=== PATIENT | male | born 1995 | race Caucasian/White ===

== ENCOUNTER 2020-08-19 22:14 | Emergency (ER) | payer SELFPAY ==
--- NOTE | 2020-08-19 22:53 | ERPHSYRPT ---
- History of Present Illness Source: patient Patient Subjective Stated Complaint: Patient states " I am from [place] and I came down to celebrate with my friend and his suprise green party and I went to step off the concrete down to garage and when I did I rolled my right ankle and I heard it pop and within minutes it swelled up pretty large and the pain is terrible". Triage Nursing Assessment: Patient arrived to ED and RN assisted patient to room R/T in wheelchair R/T unable to bear weight on right foot. Patient A/O times 4. Patient able to follow directions without difficulty. Patient right ankle noted to be very swollen. No active bruising at this time. + pedal pulse noted to right lower extremity. Cap refill < 3 seconds in right foot. Patient able to wiggle toes but states it causes him serious pain. Patient is able to move right foot back and forth and sie to side but does cause pain and discomfort. Patient is unable to bear weight on right lower extremity. Patient admits to drinking at green party and states he has had quite a few beers and shots. Bilateral eyes blood shot. RN is able to smell alcohol. Patient states he didnt fall and no other injury noted. Patient able to feel sensation whenRN touches. Patient denies any tingling or numbness. Physician History: 25 yo wm w R ankle pain after rolling it while at a green party. Pt has a h/o ankle sprains. He denies other injuries. Method of Injury: twisted Occurred: just prior to arrival Quality: constant Severity of Pain-Max: moderate Severity of Pain-Current: moderate Lower Extremities Pain: ankle: right Modifying Factors: Improves With: movement Associated Symptoms: No unable to bear weight, No snapping sensation, No popping sensation Allergies/Adverse Reactions: No Known Drug Allergies Allergy (Unverified 08/19/20 22:27) Home Medications: No Reportable Medications [No Reported Medications] 08/19/20 [History] Hx Tetanus, Diphtheria Vaccination/Date Given: Yes Hx Influenza Vaccination/Date Given: Yes Hx Pneumococcal Vaccination/Date Given: No Immunizations Up to Date: Yes Travel Risk - International Travel Have you traveled outside of the country in past 3 weeks: No - Coronavirus Screening Are you exhibiting any of the following symptoms?: No Close contact with a COVID-19 positive Pt in past 14-21 Days: No - Review of Systems Constitutional: No Symptoms Eyes: No Symptoms Ears, Nose, & Throat: No Symptoms Respiratory: No Symptoms Cardiac: No Symptoms Abdominal/Gastrointestinal: No Symptoms Genitourinary Symptoms: No Symptoms Musculoskeletal: Injury, No Back Pain, No Neck Pain Skin: No Symptoms Neurological: No Symptoms Psychological: No Symptoms Endocrine: No Symptoms Hematologic/Lymphatic: No Symptoms Immunological/Allergic: No Symptoms - Past Medical History Pertinent Past Medical History: No Neurological History: No Pertinent History ENT History: No Pertinent History Cardiac History: No Pertinent History Respiratory History: No Pertinent History Endocrine Medical History: No Pertinent History Musculoskeletal History: No Pertinent History GI Medical History: No Pertinent History History: No Pertinent History Psycho-Social History: No Pertinent History Male Reproductive Disorders: No Pertinent History - Past Surgical History Past Surgical History: Yes Neuro Surgical History: No Pertinent History Cardiac: No Pertinent History Respiratory: No Pertinent History Gastrointestinal: No Pertinent History Genitourinary: No Pertinent History Musculoskeletal: No Pertinent History Male Surgical History: No Pertinent History Other Surgical History: Jaw Surgery. Has 24 screws and metal plates in jaw - Social History Smoking Status: Current every day smoker How long have you smoked: 8 years Exposure to second hand smoke: Yes Drug Use: marijuana Patient Lives Alone: No Significant Family History: no pertinent family hx - Nursing Vital Signs Nursing Vital Signs: Initial Vital Signs Temperature 98.4 F 08/19/20 22:23 Pulse Rate 73 08/19/20 22:23 Respiratory Rate 18 08/19/20 22:23 Blood Pressure 139/82 08/19/20 22:23 O2 Sat by Pulse Oximetry 99 08/19/20 22:23 Pain Scale Pain Intensity 5 - Physical Exam General Appearance: no apparent distress, obese Eyes, Ears, Nose, Throat Exam: normal ENT inspection, TMs normal Neck Exam: normal inspection, non-tender, No Brudzinski, No Kernig's, No meningismus Cardiovascular/Respiratory Exam: normal breath sounds, regular rate/rhythm, heart sounds normal, no respiratory distress Gastrointestinal/Abdominal Exam: soft, no organomegaly, No tenderness Back Exam: normal inspection, normal range of motion, No CVA tenderness, No vertebral tenderness Hips Exam: bilateral: non-tender, normal inspection, normal range of motion, no evidence of injury Legs Exam: bilateral leg: non-tender, normal inspection, normal range of motion, no evidence of injury Knees Exam: bilateral knee: non-tender, normal inspection, normal range of motion, no evidence of injury Ankle Exam: right ankle: swelling (R ankle markedly edematous/Pain inferior to larteral malleolus/Pain w inversion/Good pedal pulse, distal sensation, and capillary return) Foot Exam: bilateral foot: non-tender, normal inspection, normal range of motion, no evidence of injury Neuro/Tendon Exam: normal sensation, normal motor functions, normal tendon functions, responds to pain, No motor deficit, No sensory deficit Mental Status Exam: alert, oriented x 3, cooperative, intoxicated appearance Skin Exam: normal color, warm, dry, No rash SpO2 Interpretation: normal SpO2: 99 O2 Delivery: Room Air - Course Nursing assessment & vital signs reviewed: Yes - Radiology Exams Ankle X-ray Interpretation: Reviewed by me (No fx) Ordered Tests: Active Orders 24 hr Category Date Time Status Titus Bandage Application -[facility] STAT Care 08/19/20 22:53 Completed Cold Application STAT Care 08/19/20 22:23 Completed Crutches STAT Care 08/19/20 22:56 Completed ANKLE (3 VIEWS) Stat Exams 08/19/20 22:24 Taken Medication Summary Discontinued Medications Generic Name Dose Route Start Last Admin Trade Name Freq PRN Reason Stop Dose Admin Ketorolac Tromethamine 60 mg 08/19/20 22:56 08/19/20 22:59 Toradol 30 Mg Injection IM 08/19/20 22:57 60 mg STAT ONE Administration Ketorolac Tromethamine Confirm 08/19/20 22:56 Toradol 30 Mg Injection Administered 08/19/20 22:57 Dose 60 mg .ROUTE .STK-MED ONE - Progress Progress Note: 08/19/20 22:57 Titus wrap R ankle per nurse/NVI Crutches per nursing 60mg IM toradol Counseled pt/family regarding: rad results - Departure Departure Disposition: Home Clinical Impression: Ankle sprain Condition: Stable Critical Care Time: No Referrals: DOCTOR,NO FAMILY [Primary Care Provider] - Instructions: Ankle Sprain (DC) Additional Instructions: Titus wrap for 3-4 days Crutches as needed Weight bearing as tolerated Ice to ankle for 12-24 hours Motrin/tylenol as needed for pain
[2020-08-19] MEDS ORDERED: TORAdol 30 mg Injection ONE (22:56)
[2020-08-19] MEDS ORDERED: TORAdol 30 mg Injection IM ONE (22:56)
[2020-08-19 23:15] VITALS: BP 132/73; PULSE 74
[2020-08-19 23:19] VITALS: O2SAT 99
--- NOTE | 2020-08-20 07:41 | XRAY ---
Indication: Pain and swelling following trauma. Comparison: None 3 view right ankle demonstrates moderate soft tissue swelling. No other bony, articular, or soft tissue abnormalities.
== END 2020-08-19 23:15 | disposition home or self-care (01) ==
LOC: ED 22:14
DX: S93.401A Sprain of unspecified ligament of right ankle, initial encounter (principal); M25.571 Pain in right ankle and joints of right foot; X50.9XXA Other and unspecified overexertion or strenuous movements or postures, initial encounter
CPT/HCPCS: 73610; 96372; 99284; J1885